=== PATIENT | male | born 1955 | race African-American/Black ===

== ENCOUNTER 2024-08-15 16:21 | Inpatient (IN) | payer OTHER ==
[2024-08-15 16:49] VITALS: RESP 18
[2024-08-15 17:03] LABS: HEMATOCRIT 20.5 % (35.4-49); MCH 30.5 pg (25.7-33.7); MCHC 31.5 g/dl (32.0-35.9); MEAN CELL VOLUME 96.5 fl (80-96); PLATELET COUNT 142.8 10^3/uL (134-434); RBC 2.12 10^6/uL (4.00-5.60); RDW 18.8 % (11.9-15.9); WHITE BLOOD COUNT 5.7 10^3/uL (4.0-10.8)
[2024-08-15 17:13] LABS: INR 1.19 (0.83-1.09); PROTHROMBIN TIME (PATIENT) 13.5 SEC (9.7-13.0)
[2024-08-15 17:20] LABS: HEMOGLOBIN 6.5 G/dL (11.7-16.9)
[2024-08-15 17:57] LABS: PLATELET ESTIMATE ADEQUATE
[2024-08-15 18:08] LABS: CREATININE 2.8 mg/dl (0.6-1.3); POTASSIUM 4.6 mmol/L (3.5-5.1)
[2024-08-15 18:09] LABS: ALBUMIN 4.1 g/dl (3.4-5.0); BILIRUBIN,TOTAL 0.5 mg/dl (0.2-1); CALCIUM 11.1 mg/dl (8.5-10.1); TOT PROT 6.2 g/dl (6.4-8.2)
[2024-08-15] MEDS ORDERED: DOCUSATE SODIUM 100 MG CAPSULE (FP) PO PRN (21:55)
[2024-08-15] MEDS ORDERED: ACETAMINOPHEN 325 MG TABLET (FP) PO PRN (21:55)
[2024-08-16] MEDS ORDERED: oxyCODONE HCL 5 MG TABLET PO PRN (02:38)
[2024-08-16 06:12] VITALS: BMI 19.7
[2024-08-16] MEDS ORDERED: ACETAMINOPHEN 325 MG TABLET (FP) PO PRN (07:34)
[2024-08-16] MEDS: SODIUM CHLORIDE 1,000 ML IV SCH (09:09)
[2024-08-16] MEDS: ALLOPURINOL 100 MG TABLET (FP) PO SCH (09:09)
[2024-08-16] MEDS: FERROUS SO4 325 MG TABLET (FP) PO SCH (09:09)
[2024-08-16 10:00] LABS: EPI CELLS 2 /uL (0-25.1); HYALINE CASTS 0 /uL (0-3.1); PH,URINE 6.5 (5.0-8.0); URINE APPEARANCE CLEAR; URINE BACTERIA 4 /uL (0-1359); URINE BILIRUBIN NEGATIVE (NEGATIVE); URINE COLOR YELLOW; URINE GLUCOSE (UA) NEGATIVE (NEGATIVE); URINE KETONE NEGATIVE (NEGATIVE); URINE LEUK ESTERASE NEGATIVE (NEGATIVE); URINE NITRITE NEGATIVE (NEGATIVE); URINE PROTEIN 1+ (NEGATIVE); URINE RBC 1 /uL (0-23.9); URINE UROBILINOGEN 0.2 mg/dL (0.2-1.0); URINE WBC 1 /uL (0-25.8)
[2024-08-16] MEDS ORDERED: PATIENT'S OWN MEDICATION (NON-FORMULARY) (Atenolol [Tenormin -] 100 MG Tablet) PO SCH (10:00)
[2024-08-16] MEDS ORDERED: PATIENT'S OWN MEDICATION (NON-FORMULARY) (Atenolol [Tenormin -] 100 MG) PO SCH (10:00)
[2024-08-16 10:02] LABS: HEMATOCRIT 22.9 % (35.4-49); HEMOGLOBIN 7.7 GM/dL (11.7-16.9); MCH 30.8 pg (25.7-33.7); MCHC 33.5 g/dl (32.0-35.9); MEAN CELL VOLUME 91.8 fl (80-96); MEAN PLT VOLUME 7.1 fl (7.5-11.1); PLATELET COUNT 97 10^3/uL (134-434); RDW 17.1 % (11.9-15.9)
[2024-08-16 10:17] LABS: POTASSIUM 4.3 mmol/L (3.5-5.1)
[2024-08-16 10:26] LABS: BLOOD UREA NITROGEN 56.1 mg/dL (7-18); CALCIUM 10.3 mg/dL (8.5-10.1); MAGNESIUM 1.5 mg/dL (1.8-2.4)
[2024-08-16 10:30] LABS: CREATININE 2.3 mg/dL (0.55-1.3); PHOSPHOROUS 2.9 mg/dL (2.5-4.9)
[2024-08-16 11:55] LABS: RETICULOCYTES 1.83 % (0.5-1.5)
[2024-08-16] MEDS: POLYETHYLENE GLYCOL (HEALTHYLAX) 3350 17 GM PACKET PO SCH (18:48)
[2024-08-16] MEDS: PANTOPRAZOLE SODIUM 40 MG VIAL IVPUSH SCH (22:50)
[2024-08-16] MEDS: MAGNESIUM SULF 50% (8.12 MEQ/2 ML-1 GM VIAL) IVPB ONE (22:52)
[2024-08-17 09:17] LABS: ALBUMIN 3.3 g/dl (3.4-5.0); BILIRUBIN,TOTAL 0.5 mg/dl (0.2-1); CALCIUM 10.3 mg/dl (8.5-10.1); MAGNESIUM 1.7 mg/dL (1.8-2.4); PHOSPHOROUS 2.9 (2.5-4.9); POTASSIUM 4.2 mmol/L (3.5-5.1); TOT PROT 5.1 g/dl (6.4-8.2)
[2024-08-17] MEDS ORDERED: MAGNESIUM SULF 50% (8.12 MEQ/2 ML-1 GM VIAL) IVPB ONE (09:36)
[2024-08-17] MEDS: MAGNESIUM SULFATE IN WATER 2 GM/50 ML IVPB IVPB ONE (10:09)
[2024-08-17 10:14] LABS: HEMATOCRIT 24.7 % (35.4-49); HEMOGLOBIN 8.1 GM/dL (11.7-16.9); MCH 30.4 pg (25.7-33.7); MEAN CELL VOLUME 92.1 fl (80-96); MEAN PLT VOLUME 7.1 fl (7.5-11.1); PLATELET COUNT 99 10^3/uL (134-434); RBC 2.68 M/mm3 (4.00-5.60); RDW 18.1 % (11.9-15.9)
[2024-08-17 11:17] LABS: ANISOCYTOSIS 0; MACROCYTOSIS 0
[2024-08-17] MEDS ORDERED: MAGNESIUM OXIDE 400 MG TABLET (FP) PO ONE (11:33)
[2024-08-17 14:23] VITALS: BP 115/58; PULSE 71; TEMP 98.5
== END 2024-08-17 13:40 | disposition home or self-care (01) | DRG 723 ==
LOC: FER 16:21 → FM/S 20:50 → OBSVTOIN 08-16 16:53
PROVIDERS: ADMIT Internal Medicine; ATTEND Internal Medicine
DX: C61 Malignant neoplasm of prostate (principal); K92.2 Gastrointestinal hemorrhage, unspecified; N17.9 Acute kidney failure, unspecified; M10.9 Gout, unspecified; I12.9 Hypertensive chronic kidney disease with stage 1 through stage 4 chronic kidney disease, or unspecified chronic kidney disease; N18.9 Chronic kidney disease, unspecified; E83.52 Hypercalcemia; D63.8 Anemia in other chronic diseases classified elsewhere; K59.00 Constipation, unspecified
CPT/HCPCS: 36415; 36430; 76775-TC; 80048; 80053; 81003; 82272; 82306; 82728; 83540; 83550; 83615; 83735; 83970; 84100; 85025; 85027; 85045; 85610; 85730; 86850; 86900; 86901; 86922; 97116-GP; 97162-GP; 99285-25; G0378; P9058